=== PATIENT | male | born 1940 | race Caucasian/White ===

== ENCOUNTER 2022-03-10 12:15 | Inpatient (IN) | payer OTHER ==
[~2022-03-10] VITALS: Ht 177.8 cm; Wt 101.6 kg
[2022-03-10 14:03] LABS: HEMOGLOBIN 8.9 gm/dl (14.0-17.5); RED BLOOD COUNT 2.93 M/UL (4.20-5.50); WHITE BLOOD COUNT 14.7 K/UL (4.5-11.0)
[2022-03-10 14:23] LABS: BUN/CREATININE RATIO 54 (0-10)
[2022-03-10 23:20] LABS: HEMOGLOBIN 7.6 gm/dl (14.0-17.5); WHITE BLOOD COUNT 14.1 K/UL (4.5-11.0)
[2022-03-10 23:31] LABS: RED BLOOD COUNT 2.49 M/UL (4.20-5.50)
[2022-03-10 23:43] LABS: BUN/CREATININE RATIO 43 (0-10)
[2022-03-11 04:38] LABS: BUN/CREATININE RATIO 34 (0-10)
[2022-03-11] MEDS ORDERED: ROPINIROLE HCL3 MG PO (10:08)
[2022-03-11] MEDS ORDERED: ATORVASTATIN CA10 MG PO (10:08)
[2022-03-11] MEDS ORDERED: COZAAR100 MG PO (10:08)
[2022-03-11] MEDS ORDERED: LATANOPROST2.5 ML OU (10:08)
[2022-03-11] MEDS ORDERED: ARTHRITIS PAIN150 GM TOP (10:09)
[2022-03-11] MEDS ORDERED: MELOXICAM15 MG PO (10:09)
[2022-03-11] MEDS ORDERED: SERTRALINE HCL50 MG PO (10:09)
[2022-03-11] MEDS ORDERED: NEURONTIN600 MG PO (10:10)
[2022-03-11] MEDS ORDERED: NALOXONE HCL4 MG (10:10)
[2022-03-11] MEDS ORDERED: FUROSEMIDE40 MG PO (10:11)
[2022-03-11] MEDS ORDERED: HYDROCODON-ACE1 EAC6 PO (10:12)
[2022-03-11] MEDS ORDERED: POTASSIUM CHLO10 ME2 PO (10:12)
[2022-03-11] MEDS ORDERED: HYDROXYZINE HCL25 MG PO (10:12)
[2022-03-11] MEDS ORDERED: ASPIRIN EC81 MG PO (10:13)
[2022-03-11] MEDS ORDERED: GLUCOSAMINE HC500 MG PO (10:13)
[2022-03-11] MEDS ORDERED: ASCORBIC ACID500 MG PO (10:14)
[2022-03-11] MEDS ORDERED: OCUVITE EYE PL1 EACH PO (10:14)
[2022-03-12 06:33] LABS: HEMOGLOBIN 8.5 gm/dl (14.0-17.5)
[2022-03-12 06:49] LABS: RED BLOOD COUNT 2.83 M/UL (4.20-5.50); WHITE BLOOD COUNT 9.4 K/UL (4.5-11.0)
[2022-03-12 07:17] LABS: BUN/CREATININE RATIO 25 (0-10)
[2022-03-13 05:24] LABS: HEMOGLOBIN 8.6 gm/dl (14.0-17.5); RED BLOOD COUNT 2.82 M/UL (4.20-5.50); WHITE BLOOD COUNT 9.8 K/UL (4.5-11.0)
[2022-03-13] MEDS ORDERED: AMOX TR-K CLV1 EAC4 PO (11:45)
[2022-03-13] MEDS ORDERED: FLOMAX 0.4 MG0.4 MG PO (11:45)
[2022-03-13] MEDS ORDERED: PROTONIX40 MG PO (11:47)
== END 2022-03-13 14:07 | disposition home or self-care (01) | DRG 378 ==
LOC: ER1 12:15 → M/S 18:43 → CDU 18:43 → M/S 03-11 00:19
PROVIDERS: Internal Medicine Gastroenterology; Physician Assistant; ADMIT Internal Medicine
PROC: 0DB78ZX Excision of Stomach, Pylorus, Via Natural or Artificial Opening Endoscopic, Diagnostic (ICD-10-PCS; 2022-03-11)
PROC: 30233N1 Transfusion of Nonautologous Red Blood Cells into Peripheral Vein, Percutaneous Approach (ICD-10-PCS; principal; 2022-03-11 13:30)
DX: K25.4 Chronic or unspecified gastric ulcer with hemorrhage (principal); D62 Acute posthemorrhagic anemia; N39.0 Urinary tract infection, site not specified; Z20.822 Contact with and (suspected) exposure to COVID-19; I10 Essential (primary) hypertension; E78.5 Hyperlipidemia, unspecified; F41.9 Anxiety disorder, unspecified; N40.0 Benign prostatic hyperplasia without lower urinary tract symptoms; H40.9 Unspecified glaucoma; G25.81 Restless legs syndrome; E78.00 Pure hypercholesterolemia, unspecified; K21.9 Gastro-esophageal reflux disease without esophagitis; G62.9 Polyneuropathy, unspecified; Z98.890 Other specified postprocedural states; Z87.440 Personal history of urinary (tract) infections; Z79.01 Long term (current) use of anticoagulants; Z79.82 Long term (current) use of aspirin; Z86.010 Personal history of colon polyps; Z87.442 Personal history of urinary calculi
CPT/HCPCS: 36415; 80053; 81001; 82272; 82550; 82553; 83605; 83690; 84484; 85025; 85610; 85730; 86140; 86850; 86900; 86901; 86920; 87040; 96365; 96367; 96375; 96376; 99284; C9113; J2060; J2543; J2704; J7040; P9016; Q0177; Q9967